=== PATIENT | female | born 1990 | race Caucasian/White ===

== ENCOUNTER 2018-09-12 08:53 | Emergency (ER) | payer MEDICAID, SELFPAY ==
[2018-09-12 08:57] VITALS: BP 122/85; PULSE 92; RESP 16; TEMP 36.7; O2SAT 99
--- NOTE | 2018-09-12 09:20 | W.ED.GENAD ---
Discharge Plan Disposition Patient Disposition: HOME Condition: Stable Discharge Details Chief Complaint: RespSymp Clinical Impression: Cough Primary Care Provider: Holli Leon ED Provider: Alex Hunt Home Meds and New Rx's Prescriptions: New doxycycline hyclate 100 mg tablet 100 mg PO BID Qty: 14 RF: 0 Continue norelgestromin-ethin.estradiol [Xulane] 1 EACH patch weekly 1 ea Transdermal weekly Qty: 9 RF: 3 Discharge Instructions Instructions: Acute Cough (ED) Additional Instructions: follow up with your primary care provider in a week if symptoms are not improving if you have significant hard time breathing or high fevers return to the emergency department for reevaluation Discharge Data Discharge Physician: Alex Hunt Medical Decision Making 28 yo with no chronic medical problems comes in with cough for over a week and had temperature of 99.9 yesterday per pt. Denies recent travel, chest pain or difficulty breathing. She has clear lungs on exam other than small amount of crackles in right lower lobe. Could be viral pneumonitis but given findings on exam and length of time with cough will treat as possible CAP. She has stable vitals and appears well systemically so doubt sepsis at this time. Advised f/u with pcp and return precautions given Differential Diagnosis bronchitis, pneumonits, cap, post nasal drip, uri HPI General Mode of arrival: ambulatory. Date/Time Provider Initiated Documentation: 09/12/18 09:16. Limitations to Documentation: no limitations. Information obtained by: patient. History of Present Illness 28 year old F presents to the emergency department with the chief complaint of cough, described as moderate, with intensity rated at 4. Patient started experiencing this week(s) (1) and it has been constant. No relieving factors improve symptom(s), No exacerbating factors reported . Patient did receive the following treatments prior to arrival, none Related Data Home Medications Medication Instructions Recorded Confirmed norelgestromin-ethin.estradiol 1 ea TRANSDERMAL weekly #9 patch 03/02/18 09/12/18 [Xulane] doxycycline hyclate 100 mg PO BID #14 tab 09/12/18 Previous Rx's Medication Instructions Recorded norelgestromin-ethin.estradiol 1 ea TRANSDERMAL weekly #9 patch 03/02/18 [Xulane] doxycycline hyclate 100 mg PO BID #14 tab 09/12/18 Allergies Allergy/AdvReac Type Severity Reaction Status Date / Time No Known Drug Allergies Allergy Unverified 09/12/18 09:16 General Stated Complaint: RespSymp LAITH: 4 Review of Systems Review of Systems All systems reviewed & are unremarkable except as noted in HPI and below Constitutional Denies chills, Denies fever(s) and Denies weakness ENT Denies change in voice Cardiovascular Denies chest pain and Denies dyspnea Respiratory Denies dyspnea Gastrointestinal Denies abdominal pain, Denies nausea and Denies vomiting Genitourinary Denies dysuria Musculoskeletal Denies joint swelling Integumentary/Breasts Denies rash Neurologic Denies weakness Psychiatric Denies depression PFSH Family History Other Heart disease Medical History Anxiety disorder Social History Smoking/Tobacco Use Status: Never Exam Const General: no acute distress Orientation: alert HENMT Head: normal to inspection Ears: external ears normal General nose exam: external nose normal Mouth: moist mucous membranes Eyes General: appearance normal, both eyes and all related structures Neck Neck: normal visual inspection Resp Effort & Inspection: normal respiratory effort and able to speak in complete sentences Cardio Rate: regular rate Skin General skin exam: no rashes or lesions noted Neuro General: alert and oriented x3 Extrem General: normal to inspection Psych Mental Status: mental status grossly normal Course Vital Signs Temperature 36.7 C 09/12/18 08:57 Pulse 92 H 09/12/18 08:57 Respiratory Rate 16 09/12/18 08:57 Blood Pressure 122/85 09/12/18 08:57 Pulse Oximetry 99 09/12/18 08:57 Temperature 36.7 C 09/12/18 08:57 Temperature Source Skin 09/12/18 08:57 Pulse 92 H 09/12/18 08:57 Respiratory Rate 16 09/12/18 08:57 Respiratory Effort Non-Labored 09/12/18 09:03 Respiratory Depth Normal 09/12/18 09:03 Blood Pressure 122/85 09/12/18 08:57 Pulse Oximetry 99 09/12/18 08:57 Pain Level 5 09/12/18 08:57
--- NOTE | 2018-09-12 09:23 | ED.GENADUL_ITS ---
Discharge Plan Disposition Patient Disposition: HOME Condition: Stable Discharge Details Chief Complaint: RespSymp Clinical Impression: Cough Primary Care Provider: Holli Leon ED Provider: Alex Hunt Home Meds and New Rx's Prescriptions: New doxycycline hyclate 100 mg tablet 100 mg PO BID Qty: 14 RF: 0 Continue norelgestromin-ethin.estradiol [Xulane] 1 EACH patch weekly 1 ea Transdermal weekly Qty: 9 RF: 3 Discharge Instructions Instructions: Acute Cough (ED) Additional Instructions: follow up with your primary care provider in a week if symptoms are not improving if you have significant hard time breathing or high fevers return to the emergency department for reevaluation Discharge Data Discharge Physician: Aelx Hunt Medical Decision Making 28 yo with no chronic medical problems comes in with cough for over a week and had temperature of 99.9 yesterday per pt. Denies recent travel, chest pain or difficulty breathing. She has clear lungs on exam other than small amount of crackles in right lower lobe. Could be viral pneumonitis but given findings on exam and length of time with cough will treat as possible CAP. She has stable vitals and appears well systemically so doubt sepsis at this time. Advised f/u with pcp and return precautions given Differential Diagnosis bronchitis, pneumonits, cap, post nasal drip, uri HPI General Mode of arrival: ambulatory . Date/Time Provider Initiated Documentation: 09/12/18 09:16 . Limitations to Documentation: no limitations . Information obtained by: patient . History of Present Illness 28 year old F presents to the emergency department with the chief complaint of cough, described as moderate, with intensity rated at 4. Patient started experiencing this week(s) (1) and it has been constant. No relieving factors improve symptom(s), No exacerbating factors reported . Patient did receive the following treatments prior to arrival, none Related Data Home Medications Medication Instructions Recorded Confirmed norelgestromin-ethin.estradiol 1 ea TRANSDERMAL weekly #9 patch 03/02/18 [Xulane] doxycycline hyclate 100 mg PO BID #14 tab 09/12/18 Previous Rx's Medication Instructions Recorded norelgestromin-ethin.estradiol 1 ea TRANSDERMAL weekly #9 patch 03/02/18 [Xulane] doxycycline hyclate 100 mg PO BID #14 tab 09/12/18 Allergies Allergy/AdvReac Type Severity Reaction Status Date / Time No Known Drug Allergies Allergy Unverified 09/12/18 09:16 General Stated Complaint: RespSymp LAITH: 4 Review of Systems Review of Systems All systems reviewed & are unremarkable except as noted in HPI and below Constitutional Denies chills, Denies fever(s) and Denies weakness ENT Denies change in voice Cardiovascular Denies chest pain and Denies dyspnea Respiratory Denies dyspnea Gastrointestinal Denies abdominal pain, Denies nausea and Denies vomiting Genitourinary Denies dysuria Musculoskeletal Denies joint swelling Integumentary/Breasts Denies rash Neurologic Denies weakness Psychiatric Denies depression PFSH Family History Other Heart disease Medical History Anxiety disorder Social History Smoking/Tobacco Use Status: Never Exam Const General: no acute distress Orientation: alert HENMT Head: normal to inspection Ears: external ears normal General nose exam: external nose normal Mouth: moist mucous membranes Eyes General: appearance normal, both eyes and all related structures Neck Neck: normal visual inspection Resp Effort & Inspection: normal respiratory effort and able to speak in complete sentences Cardio Rate: regular rate Skin General skin exam: no rashes or lesions noted Neuro General: alert and oriented x3 Extrem General: normal to inspection Psych Mental Status: mental status grossly normal Course Vital Signs Temperature 36.7 C 09/12/18 08:57 Pulse 92 H 09/12/18 08:57 Respiratory Rate 16 09/12/18 08:57 Blood Pressure 122/85 09/12/18 08:57 Pulse Oximetry 99 09/12/18 08:57 Temperature 36.7 C 09/12/18 08:57 Temperature Source Skin 09/12/18 08:57 Pulse 92 H 09/12/18 08:57 Respiratory Rate 16 09/12/18 08:57 Respiratory Effort Non-Labored 09/12/18 09:03 Respiratory Depth Normal 09/12/18 09:03 Blood Pressure 122/85 09/12/18 08:57 Pulse Oximetry 99 09/12/18 08:57 Pain Level 5 09/12/18 08:57
== END 2018-09-12 09:30 | disposition home or self-care (01) ==
PROVIDERS: Emergency Provider Emergency Medicine; PCP Nurse Practitioner
DX: R05 Cough (principal)
CPT/HCPCS: 99283

== ENCOUNTER 2019-03-04 16:19 | Outpatient (REF) | payer MEDICAID, SELFPAY ==
--- NOTE | 2019-03-04 15:30 | PAPFT_PTH ---
PATIENT: Berenice Gibson LOC: [facility] U#:[id number] AGE/SX: 29/F ROOM: RE03/04/[address]: JEFFERSON Jimenez : 1990 BED: DIS: 03/04/2019 SPEC #: [id number] RECD: 03/04/19 18:18 STATUS: [facility]UH RELeona #: [id number] ANASTASIA: 03/04/19 15:[address]: Suyapa Austin DEPT: [facility] Cytology RECD BY: Kavya Conner ENTERED: 03/04/19 18:19 SP TYPE: PAPFT JOHNNY DR: Holli Leon Tissues: 1 - CX/ENDOCX FOR PAP SMEARS Procedures: PAP THIN PREP/UVM Screening Comments: [id number]
[2019-03-08 15:16] LABS: Chlamydia Result Negative; GC Result Negative; Specimen Description CERVIX
== END 2019-03-04 16:39 ==
LOC: LBN 16:19
PROVIDERS: PCP Nurse Practitioner; Visit Provider Nurse Practitioner Family
DX: Z11.3 Encounter for screening for infections with a predominantly sexual mode of transmission (principal); Z12.4 Encounter for screening for malignant neoplasm of cervix
CPT/HCPCS: 87491; 87591; 88142

== ENCOUNTER 2019-08-01 04:41 | Emergency (ER) | payer BC, MEDICAID, SELFPAY ==
[2019-08-01 04:43] VITALS: BP 125/65; PULSE 80; RESP 17; TEMP 37.2; O2SAT 98
--- NOTE | 2019-08-01 04:47 | W.ED.GENAD ---
Discharge Plan Disposition Patient Disposition: HOME Condition: Stable Discharge Details Chief Complaint: Sorethroat Clinical Impression: Pharyngitis Primary Care Provider: Holli Leon ED Provider: Alex Hunt Home Meds and New Rx's Prescriptions: New amoxicillin 500 mg tablet 500 mg PO BID Qty: 20 RF: 0 Continued Xulane 150-35 mcg/24 hr patch weekly 1 patch Transdermal weekly Qty: 9 RF: 3 Discharge Instructions Instructions: Pharyngitis (ED) Medical Decision Making 29 yo female comes in with 2 days of sore throat and subjective fevers. She states it hurts to swallow. SHe arrives in no dsitress speaking in full sentences on exam withot stridor or drooling. She has erythema of posterior pharynx, midline uvula, no submandibular swelling, pain over the hyoid or restricted neck movements. Her exam is consistent with pharyngitis, will check for strep. NO findings to suggest rpa, oil tanker captain, epiglotitis, ludwigs strep is positive, will start amoxicilin and d/c, return precautions given Differential Diagnosis strep vs viral pharyngitis, rpa, oil tanker captain HPI General Mode of arrival: ambulatory. Date/Time Provider Initiated Documentation: 08/01/19 04:46. Limitations to Documentation: no limitations. Information obtained by: patient. History of Present Illness 29 year old F presents to the emergency department with the chief complaint of sore throat, described as moderate, Quality is described as aching, Patient reports no radiation. Patient started experiencing this day(s) (2) and it has been constant. No relieving factors improve symptom(s), No exacerbating factors reported . Patient did receive the following treatments prior to arrival, NSAID Related Data Home Medications Medication Instructions Recorded Confirmed norelgestromin 150 mcg-e.estradiol 1 patch TRANSDERMAL weekly #9 patch 03/04/19 08/01/19 35 mcg/24 hr weekly transderm patch amoxicillin 500 mg PO BID #20 tab 08/01/19 Previous Rx's Medication Instructions Recorded norelgestromin 150 mcg-e.estradiol 1 patch TRANSDERMAL weekly #9 patch 03/04/19 35 mcg/24 hr weekly transderm patch amoxicillin 500 mg PO BID #20 tab 08/01/19 Allergies Allergy/AdvReac Type Severity Reaction Status Date / Time No Known Drug Allergies Allergy Verified 08/01/19 04:47 General Stated Complaint: Sorethroat LAITH: 4 Review of Systems Review of Systems All systems reviewed & are unremarkable except as noted in HPI and below Constitutional Denies weakness Cardiovascular Denies chest pain and Denies dyspnea Respiratory Denies cough and Denies dyspnea Gastrointestinal Denies abdominal pain, Denies nausea and Denies vomiting Musculoskeletal Denies joint swelling Neurologic Denies weakness Psychiatric Denies depression Allergic/Immunologic Denies urticaria PFSH Medical History Anxiety disorder (Acute 03/10/13) Contraception (Acute 03/02/18) Social History Smoking/Tobacco Use Status: Never Alcohol Intake: current Alcohol Intake frequency: holidays/special occasions only Alcohol type: beer and wine Drug use: Never Substance use type: does not use Do you feel safe at home: Yes Do you feel safe in your relationship?: Yes Female Reproductive History Menstrual control method: patch History History 1 Para 1 Hx # Term Pregnancies Multiple births Hx # Pregnancies Ectopic pregnancies AB induced Hx Number of Living Children AB spontaneous Exam Const General: no acute distress Orientation: alert HENMT Head: normal to inspection Ears: external ears normal General nose exam: external nose normal Mouth: moist mucous membranes Eyes General: appearance normal, both eyes and all related structures Neck Neck: normal visual inspection Resp Effort & Inspection: normal respiratory effort and able to speak in complete sentences Cardio Rate: regular rate Skin General skin exam: no rashes or lesions noted Neuro General: alert and oriented x3 Extrem General: normal to inspection Psych Mental Status: mental status grossly normal Course Vital Signs Temperature 37.2 C 08/01/19 04:43 Pulse 80 08/01/19 04:43 Respiratory Rate 17 08/01/19 04:43 Blood Pressure 125/65 08/01/19 04:43 Pulse Oximetry 98 08/01/19 04:43 Temperature 37.2 C 08/01/19 04:43 Temperature Source Skin 08/01/19 04:43 Pulse 80 08/01/19 04:43 Respiratory Rate 17 08/01/19 04:43 Blood Pressure 125/65 08/01/19 04:43 Blood Pressure Position Sitting 08/01/19 04:43 Pulse Oximetry 98 08/01/19 04:43 Oxygen Delivery Method Room Air 08/01/19 04:43 Oxygen Flow Rate 0 08/01/19 04:43 Pain Level 7 08/01/19 04:43
[2019-08-01] MEDS: Amoxicillin 500 MG CAP PO (05:06)
== END 2019-08-01 05:10 | disposition home or self-care (01) ==
LOC: ER 05:06
PROVIDERS: Emergency Provider Emergency Medicine; PCP Nurse Practitioner
DX: J02.0 Streptococcal pharyngitis (principal)
CPT/HCPCS: 87880; 99283

== ENCOUNTER 2019-09-07 14:42 | Outpatient (CLI) | payer MEDICAID, SELFPAY ==
[2019-09-08 11:27] LABS: Hepatitis B Surface Ag Negative (NEGAT); Hepatitis C Ab w Rflx HCV PCR Negative (NEGAT)
[2019-09-08 14:03] LABS: HIV-1/2 Ag & Ab Screen Negative (NEGAT)
[2019-09-08 16:23] LABS: Syphilis Total Ab w/Reflex Nonreactive (Nonreactive)
== END 2019-09-07 15:02 ==
PROVIDERS: PCP Nurse Practitioner; Visit Provider Nurse Practitioner Women's Health
DX: Z11.3 Encounter for screening for infections with a predominantly sexual mode of transmission (principal); Z11.4 Encounter for screening for human immunodeficiency virus [HIV]; Z11.59 Encounter for screening for other viral diseases
CPT/HCPCS: 36415; 86803; 87340; 87389; 86780

== ENCOUNTER 2019-09-07 18:46 | Outpatient (REF) | payer MEDICAID, SELFPAY ==
[2019-09-09 14:33] LABS: Chlamydia Result Negative; GC Result Negative; Specimen Description URINE
== END 2019-09-07 19:06 ==
LOC: LBN 18:46
PROVIDERS: PCP Nurse Practitioner; Visit Provider Nurse Practitioner Women's Health
DX: Z11.3 Encounter for screening for infections with a predominantly sexual mode of transmission (principal)
CPT/HCPCS: 87491; 87591

== ENCOUNTER 2020-09-01 16:34 | Outpatient (REF) | payer MEDICAID, SELFPAY ==
--- NOTE | 2020-09-01 15:50 | PAPFT_PTH ---
PATIENT: Berenice Gibson LOC: [facility] U#:[id number] AGE/SX: 30/F ROOM: RE09/01/[address]: JEFFERSON Jimenez : 1990 BED: DIS: 09/01/2020 SPEC #: [id number] RECD: 09/01/20 17:29 STATUS: [facility] RELeona #: [id number] ANASTASIA: 09/01/20 15:[address]: Suyapa Austin DEPT: [facility] Cytology RECD BY: Fabiola Garcia ENTERED: 09/01/20 17:30 SP TYPE: PAPFT OTHR DR: Holli Leon Tissues: 1 - CX/ENDOCX FOR PAP SMEARS Procedures: PAP THIN PREP/UVM Screening HPV DNA PROBE Comments: [id number]
[2020-09-04 15:10] LABS: Chlamydia Result Negative (Negative); GC Result Negative (Negative)
== END 2020-09-01 16:54 ==
LOC: LBN 16:34
PROVIDERS: PCP Nurse Practitioner; Visit Provider Nurse Practitioner Family
DX: Z12.4 Encounter for screening for malignant neoplasm of cervix (principal); Z11.51 Encounter for screening for human papillomavirus (HPV)
CPT/HCPCS: 87491; 87591; 88142; 87624

== ENCOUNTER 2020-09-06 02:11 | Outpatient (CLI) | payer MEDICAID, SELFPAY ==
[2020-09-06 11:38] LABS: TSH (W/Ref FT4) 0.34 uIU/mL (0.36-3.74)
[2020-09-06 12:06] LABS: FREE T4 1.07 ng/dL (0.76-1.46)
[2020-09-07 09:22] LABS: Hepatitis B Surface Ag Negative (Negative)
[2020-09-07 10:10] LABS: Hepatitis C Ab w Rflx HCV PCR Negative (Negative)
[2020-09-07 10:22] LABS: HIV-1/2 Ag & Ab Screen Negative (Negative)
[2020-09-08 11:34] LABS: Syphilis Total Ab w/Reflex Nonreactive (Nonreactive)
== END 2020-09-06 02:31 ==
PROVIDERS: PCP Nurse Practitioner; Visit Provider Nurse Practitioner Family
DX: Z11.3 Encounter for screening for infections with a predominantly sexual mode of transmission (principal); N92.6 Irregular menstruation, unspecified
CPT/HCPCS: 36415; 86803; 87340; 87389; 84439; 84443; 86780

== ENCOUNTER 2021-09-17 18:03 | Outpatient (REF) | payer MEDICAID, SELFPAY ==
[2021-09-19 15:25] LABS: Chlamydia Result Negative (Negative); GC Result Negative (Negative)
== END 2021-09-17 18:04 | disposition home or self-care (01) ==
LOC: NCHCN 18:03
PROVIDERS: PCP Nurse Practitioner; Visit Provider Nurse Practitioner Family
DX: Z11.3 Encounter for screening for infections with a predominantly sexual mode of transmission (principal)
CPT/HCPCS: 87491; 87591

== ENCOUNTER 2021-09-19 04:37 | Outpatient (CLI) | payer MEDICAID, SELFPAY ==
[2021-09-20 10:04] LABS: Hepatitis B Surface Ag Negative (Negative)
[2021-09-20 10:37] LABS: Hepatitis C Ab w Rflx HCV PCR Negative (Negative)
[2021-09-20 10:56] LABS: HIV-1/2 Ag & Ab Screen Negative (Negative)
[2021-09-20 14:46] LABS: Syphilis Total Ab w/Reflex Nonreactive (Nonreactive)
== END 2021-09-19 04:38 | disposition home or self-care (01) ==
LOC: LBO 04:37
PROVIDERS: PCP Nurse Practitioner; Visit Provider Nurse Practitioner Family
DX: Z11.3 Encounter for screening for infections with a predominantly sexual mode of transmission (principal); Z11.4 Encounter for screening for human immunodeficiency virus [HIV]; Z11.59 Encounter for screening for other viral diseases
CPT/HCPCS: 36415; 86803; 87340; 87389; 86780

== ENCOUNTER 2022-08-26 12:35 | Outpatient (REF) | payer MEDICAID, SELFPAY | END 2022-08-26 12:36 | disposition home or self-care (01) | LOC: LBN 12:35 | PROVIDERS: PCP Nurse Practitioner; Visit Provider Advanced Practice Midwife | DX: N89.8 Other specified noninflammatory disorders of vagina (principal); R30.0 Dysuria | CPT/HCPCS: 87086; 87480; 87510; 87660 ==

== ENCOUNTER 2023-01-03 09:15 | Outpatient (REF) | payer MEDICAID, SELFPAY ==
--- NOTE | 2023-01-03 08:44 | PAPFT_PTH ---
PATIENT: Berenice Gibson LOC: [facility] U#:[id number] AGE/SX: 32/F ROOM: RE01/03/[address]: Maria Victoria Power MD : 1990 BED: DIS: 01/03/2023 SPEC #: [id number] RECD: 01/03/23 12:52 STATUS: [facility] REQ #: [id number] ANASTASIA: 01/03/23 08:[address]: Maria Victoria Power DEPT: [facility] Cytology RECD BY: Kavya Conner ENTERED: 01/03/23 12:52 SP TYPE: PAPFT JOHNNY DR: CHRISTIAN URBINA NP Tissues: 1 - CX/ENDOCX FOR PAP SMEARS Procedures: PAP THIN PREP/UVM Screening HPV DNA PROBE Comments: [id number]
== END 2023-01-03 09:16 | disposition home or self-care (01) ==
LOC: LBN 09:15
PROVIDERS: PCP Nurse Practitioner Family; Visit Provider Obstetrics & Gynecology
DX: Z12.4 Encounter for screening for malignant neoplasm of cervix (principal); Z11.51 Encounter for screening for human papillomavirus (HPV)
CPT/HCPCS: 88142; 87624

== ENCOUNTER 2023-08-07 16:25 | Outpatient (REF) | payer MEDICAID, SELFPAY ==
[2023-08-07 17:38] LABS: HCT 45.7 % (36.0-46.0); HGB 15.7 g/dL (11.2-15.7); MCHC 34.4 % (32.0-36.0); MCV 87 fL (80-95); MPV 11.4 fL (8.0-11.0); Platelet Count 253 10^3/uL (130-400); RBC 5.24 10^6/uL (3.93-5.22); RDW 11.7 % (11.7-14.6); RDW-SD 37.6 fL; WBC 7.64 10^3/uL (4.4-10.8)
[2023-08-07 18:08] LABS: Vitamin D 25 Total 62.5 ng/mL (30-100)
[2023-08-07 18:27] LABS: ALT 32 U/L (14-59); AST 16 U/L (15-37); Albumin 4.3 g/dL (3.4-5.0); Alkaline Phosphatase 73 U/L (46-116); Anion Gap 10.3 mmol/L (3-11); BUN 14 mg/dL (7-18); Bilirubin, Total 0.8 mg/dL (0.2-1.0); CO2 26.7 mmol/L (21.0-32.0); CREATININE 0.9 mg/dL (0.55-1.02); Calcium 9.1 mg/dL (8.5-10.1); Chloride 102 mmol/L (98-107); Estimated GFR 86.57 (mL/min/1.73m2); Glucose 102 mg/dL (74-106); Potassium 4.4 mmol/L (3.5-5.1); Sodium 139 mmol/L (136-145); TSH (W/Ref FT4) 0.44 uIU/mL (0.36-3.74); Total Protein 7.9 g/dL (6.4-8.2); Vitamin B12 575 pg/mL (193-986)
== END 2023-08-07 16:26 | disposition home or self-care (01) ==
LOC: NCHCN 16:25
PROVIDERS: PCP Nurse Practitioner Family; Visit Provider Nurse Practitioner Family
DX: F41.9 Anxiety disorder, unspecified (principal); R63.5 Abnormal weight gain; Z83.49 Family history of other endocrine, nutritional and metabolic diseases
CPT/HCPCS: 80053; 82306; 85027; 82607; 84443

== ENCOUNTER 2023-10-28 02:02 | Outpatient (CLI) | payer MEDICAID, SELFPAY ==
[2023-10-28 14:25] LABS: Panorama Kit Sent via Fed Ex
[2023-10-28 14:32] LABS: Abs Immature Grans 0.03 10^3/uL (0.0-0.06); Absolute Basophil Count 0.03 10^3/uL (0.0-0.2); Absolute Eosinophil Count 0.09 10^3/uL (0.0-0.7); Absolute Lymphocyte Count 2.45 10^3/uL (1.2-3.4); Absolute Monocyte Count 0.37 10^3/uL (0.1-0.8); Absolute Neutrophil Count 6.39 10^3/uL (1.2-6.7); Basophils % 0.3; HCT 39.6 % (36.0-46.0); HGB 13.8 g/dL (11.2-15.7); Immature Grans % 0.3; Lymphocytes % 26.2; MCH 30.3 pg (27.0-33.0); MCHC 34.8 % (32.0-36.0); MCV 87 fL (80-95); MPV 10.3 fL (8.0-11.0); Neutrophils % 68.2; Platelet Count 236 10^3/uL (130-400); RBC 4.56 10^6/uL (3.93-5.22); RDW 11.7 % (11.7-14.6); RDW-SD 37.3 fL; WBC 9.36 10^3/uL (4.4-10.8)
[2023-10-28 15:12] LABS: Glucose,1 Hr (Glucola) 169 mg/dL (80-140)
[2023-10-29 10:03] LABS: Hepatitis B Surface Ag Negative (Negative)
[2023-10-29 10:42] LABS: HIV-1/2 Ag & Ab Screen Negative (Negative)
[2023-10-29 10:48] LABS: Hepatitis C Ab w Rflx HCV PCR Negative (Negative)
[2023-10-29 11:04] LABS: Varicella IgG Antibody Positive (See Note)
[2023-10-29 11:21] LABS: Rubella IgG Ab (UVM) Positive (See Note)
[2023-10-30 19:03] LABS: Syphilis IgG w/Reflex Nonreactive (Nonreactive)
== END 2023-10-28 02:03 | disposition home or self-care (01) ==
LOC: LBO 02:02
PROVIDERS: PCP Nurse Practitioner Family; Visit Provider Advanced Practice Midwife
DX: Z34.91 Encounter for supervision of normal pregnancy, unspecified, first trimester (principal)
CPT/HCPCS: 36415; 82950; 86787; 86803; 86850; 86900; 86901; 87340; 87389; 85025; 86762; 86780

== ENCOUNTER 2023-10-28 15:49 | Outpatient (REF) | payer MEDICAID, SELFPAY ==
[2023-10-28 17:09] LABS: *AMPHETAMINES SCREEN URINE Negative (Negative); *BARBITURATES SCREEN URINE Negative (Negative); *BENZODIAZEPINES SCREEN URINE Negative (Negative); Cannabinoids THC Negative (Negative); Cocaine Screen,Urine Negative (Negative); METHADONE URINE SCREEN Negative (Negative); OPIATES URINE SCREEN Negative (Negative)
[2023-10-28 17:12] LABS: Tricyclic Antidepressants Negative (Negative)
[2023-10-30 16:51] LABS: Chlamydia Result Negative (Negative); GC Result Negative (Negative)
[2023-11-04 15:40] LABS: Buprenorphine Negative ng/mL (Cutoff: 5.0); Norbuprenorphine Negative ng/mL (Cutoff: 2.5)
== END 2023-10-28 15:50 | disposition home or self-care (01) ==
LOC: LBN 15:49
PROVIDERS: PCP Nurse Practitioner Family; Visit Provider Advanced Practice Midwife
DX: Z34.91 Encounter for supervision of normal pregnancy, unspecified, first trimester (principal)
CPT/HCPCS: 80307; 80348; 87491; 87591; 87086

== ENCOUNTER 2023-11-04 04:55 | Outpatient (CLI) | payer MEDICAID, SELFPAY ==
[2023-11-04 10:04] LABS: Glucose,1 Hr (Glucola) 179 mg/dL (80-140)
== END 2023-11-04 04:56 | disposition home or self-care (01) ==
LOC: LBO 04:55
PROVIDERS: PCP Nurse Practitioner Family; Visit Provider Advanced Practice Midwife
DX: Z34.92 Encounter for supervision of normal pregnancy, unspecified, second trimester (principal)
CPT/HCPCS: 36415; 82950

== ENCOUNTER 2023-11-12 04:08 | Outpatient (CLI) | payer MEDICAID, SELFPAY ==
[2023-11-12 08:54] LABS: Glucose 1 Hour 139 mg/dL
[2023-11-12 10:54] LABS: Glucose 3 Hour 93 mg/dL
== END 2023-11-12 04:09 | disposition home or self-care (01) ==
LOC: LBO 04:08
PROVIDERS: PCP Nurse Practitioner Family; Visit Provider Advanced Practice Midwife
DX: Z34.91 Encounter for supervision of normal pregnancy, unspecified, first trimester (principal); Z3A.11 11 weeks gestation of pregnancy
CPT/HCPCS: 36415; 82951

== ENCOUNTER 2023-11-26 17:23 | Outpatient (REF) | payer MEDICAID, SELFPAY ==
--- NOTE | 2023-11-26 17:00 | SKI_PTH ---
PATIENT: Berenice Gibson LOC: [facility] U#:[id number] AGE/SX: 33/F ROOM: RE11/26/[address]: CHRISTIAN URBINA NP : 1990 BED: DIS: 11/26/2023 SPEC #: [id number] RECD: 11/27/23 12:43 STATUS: [facility] #: [id number] ANASTASIA: 11/26/23 17:[address]: CHRISTIAN URBINA DEPT: Surgical Specimen RECD BY: Kavya Conner Tissues: 1 - SKIN BIOPSY(SHAVE/PUNCH) Procedures: SKIN LEVEL 4 Comments: [id number]
== END 2023-11-26 17:24 | disposition home or self-care (01) ==
LOC: NCHCN 17:23
PROVIDERS: PCP Nurse Practitioner Family; Visit Provider Nurse Practitioner Family
DX: L82.1 Other seborrheic keratosis (principal)
CPT/HCPCS: 88305

== ENCOUNTER 2023-12-02 21:26 | Outpatient (REF) | payer MEDICAID, SELFPAY ==
[2023-12-03 09:51] LABS: COVID-19 PCR Negative (Negative); Influenza A PCR Positive (Negative); Influenza B PCR Negative (Negative); RSV PCR Negative (Negative)
[2023-12-03 10:15] LABS: Source Nasopharynx
== END 2023-12-02 21:27 | disposition home or self-care (01) ==
LOC: LBN 21:26
PROVIDERS: PCP Nurse Practitioner Family; Visit Provider Nurse Practitioner Family
DX: B34.9 Viral infection, unspecified (principal)
CPT/HCPCS: 87637; 87070

== ENCOUNTER → 2023-12-22 02:56 | Outpatient (CLI) | payer MEDICAID, SELFPAY ==
--- NOTE | 2023-12-22 07:30 | DI.US_ITS ---
Exam(s) US OB 2-3 TRIMESTER EXAM: US OB 2-3 TRIMESTER CLINICAL HISTORY: anatomy/morphology,z34.91. TECHNIQUE: Transabdominal obstetrical ultrasound performed. COMPARISON: US OB US 1ST TRIMESTER TRANSABD*P from 01/07/2014 FINDINGS: Number of fetuses: 1 position: VARIED heart rate: 151bpm Placental location: There is a grade 1 anterior placenta. The placental tip is 4.5 cm from the inter nal os. No evidence of previa. Amniotic fluid index: Amount of fluid is within normal limits. ANATOMICAL SURVEY: Within normal limits. BIOMETRIC DATA: BPD: 4.75cm, 20weeks 3days HC: 17.63cm, 20weeks 1day AC: 15.6cm, 20weeks 5days FL: 3cm, 19weeks 2days Cisterna magna: 2.5mm Cerebellum: 1.92cm Lateral ventricle: 6.3 mm EFW: 331.46g, 0.76lb, 88% Composite Age: 20weeks 1day YAN: 05/09/2024 Heart Rate: 151bpm ANATOMICAL SURVEY: Four-chambered heart: Unremarkable. RVOT: Unremarkable. LVOT: Unremarkable. Left-sided stomach: Unremarkable. urinary bladder: Unremarkable. Bilateral kidneys: Unremarkable. Three-vessel cord: Unremarkable. Cord insertion: Unremarkable. Posterior fossa: Unremarkable. ventricles: Unremarkable. nose/lips: Unremarkable. Palate: Unremarkable. spine: Unremarkable. Two arms and two legs: Unremarkable. IMPRESSION: 1. Single live intrauterine gestation as above. 2. Normal anatomic survey. DATA REPOSITORY:
[2024-03-22 13:31] VITALS: BP 121/78; PULSE 72
== END ==
PROVIDERS: PCP Nurse Practitioner Family; Visit Provider Advanced Practice Midwife
DX: Z34.91 Encounter for supervision of normal pregnancy, unspecified, first trimester (principal)
CPT/HCPCS: 76805

== ENCOUNTER 2024-02-25 05:02 | Outpatient (CLI) | payer MEDICAID, SELFPAY ==
[2024-02-25 07:56] LABS: HCT 36.8 % (36.0-46.0); MCH 28.9 pg (27.0-33.0); MCHC 32.6 % (32.0-36.0); MCV 89 fL (80-95); MPV 10.7 fL (8.0-11.0); Platelet Count 163 10^3/uL (130-400); RBC 4.15 10^6/uL (3.93-5.22); RDW 12.5 % (11.7-14.6); RDW-SD 40.7 fL; WBC 9.93 10^3/uL (4.4-10.8)
[2024-02-25 08:14] LABS: ALT 25 U/L (14-59); AST 21 U/L (15-37); Albumin 2.6 g/dL (3.4-5.0); Alkaline Phosphatase 77 U/L (46-116); Anion Gap 7.9 mmol/L (3-11); BUN 15 mg/dL (7-18); Bilirubin, Total 0.3 mg/dL (0.2-1.0); CO2 27.1 mmol/L (21.0-32.0); CREATININE 0.7 mg/dL (0.55-1.02); Calcium 8.5 mg/dL (8.5-10.1); Chloride 103 mmol/L (98-107); Estimated GFR 116.31 (mL/min/1.73m2); Glucose 83 mg/dL (74-106); Sodium 138 mmol/L (136-145); Total Protein 6.9 g/dL (6.4-8.2)
[2024-02-25 09:54] LABS: Glucose 1 Hour 153 mg/dL
[2024-02-25 12:01] LABS: Glucose 3 Hour 126 mg/dL
== END 2024-02-25 05:03 | disposition home or self-care (01) ==
LOC: LBO 05:02
PROVIDERS: Advanced Practice Midwife; PCP Nurse Practitioner Family; Visit Provider Advanced Practice Midwife
DX: I10 Essential (primary) hypertension (principal); Z34.92 Encounter for supervision of normal pregnancy, unspecified, second trimester; R73.09 Other abnormal glucose
CPT/HCPCS: 36415; 80053; 85027; 82951

== ENCOUNTER 2024-03-22 13:12 | Outpatient (CLI) | payer MEDICAID, SELFPAY ==
[2024-03-22 13:27] VITALS: BP 121/78; PULSE 72; TEMP 36.8
[2024-03-22 14:35] LABS: Fetal Fibronectin Negative (Negative)
--- NOTE | 2024-03-22 16:23 | W.OBNST ---
Date of service: 03/22/24 Time of Service: 16:23 NST Evaluation Reason for NST Reasons for Nonstress Test: OTHER, SEE COMMENT Reason for NST Other: rule out pre-term labor Gestational Age Gestational Age in Weeks and Days: 32 Weeks and 2Days Test and Monitor Explained Test/Monitor Explained: Test Explained Vital Signs Blood Pressure: 121/78 Pulse: 72 Temperature: 98.2 F Urine Results Urine Protein: Negative Urine Ketones: Negative Urine Glucose: Negative Urine Blood: Negative NST Information Date on Monitor: 03/22/24 Time on Monitor: 13:16 Date off Monitor: 03/22/24 Time off Monitor: 15:45 Total Time on Monitor: 149 NST Interventions: None Contraction Frequency: 4-6 NST Evaluation Patient States Movement: Present FHR Baseline: 140 Variability: Moderate 6-25 bpm Accelerations: 15x15 Decelerations: None NST Results: Reactive Note Ultrasound Done: N/A. NST Note Note: fFN is positive, VPS & US are negative, GBS and GC/CT pending Cvx very posterior and high, soft/thick, internal os admits a fingertip, no presenting part in the pelvis (cephalic), Discussion with Dr. Power, will advise pt on warning sx, decrease activity when at home, rest AMAP and hydrate well As cvx is not favorable will hold off on steroids or starting maternity leave at this time RTO for weekly visits, starting 03/26. NST Reviewed and Verified by: Sandra Vazquez
[2024-03-22 16:29] VITALS: BP 121/78; PULSE 72; TEMP 36.8
[2024-03-24 13:09] LABS: Chlamydia Result Negative (Negative); GC Result Negative (Negative)
== END 2024-03-22 16:07 | disposition home or self-care (01) ==
LOC: BCD 13:18 → OBS 13:26
PROVIDERS: PCP Nurse Practitioner Family; Visit Provider Advanced Practice Midwife
DX: O47.03 False labor before 37 completed weeks of gestation, third trimester (principal); Z3A.32 32 weeks gestation of pregnancy
CPT/HCPCS: 59025; 87491; 87591; 82731; 87081; 87480; 87510; 87660

== ENCOUNTER 2024-03-24 10:09 | Observation (INO) | payer MEDICAID, SELFPAY ==
[2024-03-24 08:49] VITALS: BP 130/82; PULSE 77
[2024-03-24 09:08] VITALS: BP 130/82; PULSE 77; TEMP 36.8
--- NOTE | 2024-03-24 10:11 | W.PM.OBHPL1 ---
Date of service: 03/24/24 Time of Service: 10:11 Assessment and Plan Assessment and plan (1) labor in third trimester: Status: Acute Assessment and plan: A: 34 yo @ 32+4 wks; on 03/22 fFN was neg, BV, amarilys and trich negative PTL sx x2 days, cvx change from previous exam 2 days ago On 03/22 cvx was FT/thick, posterior/high, now 3/60% mid pelvis, vtx -3/-4 category 1 tracing; GBS & CT/GC pending, Rh+ P: Consult with Dr. Power: [place] [facility] [place]ifedipine 10 mg PO Celestone 12 mg IM IV access with LR @ 150 ml/hr Dr. Clements [place] [facility] [place] Qualifiers: Fetus number: single or unspecified fetus OB-HPI Labor/Delivery History of Present Illness Reason for Visit: NST Chief Complaint: Uterine Contractions (cramping and contractions for several days); Other (small brown colored thick mucous on postvoid wipe this morning). YAN Calculator Estimated Delivery Date Method Current WG Current Estimate 05/15/24 LMP (Certain) 32w 4d History of Present Expected Delivery Route/Plan - CNM FOB/ - Kingsley Kitchen (first child) BB yes to cathy Mitchell Interested in laboring in the tub Specific Issues/Plan 1. OCD, works with PCP and feels it is in a good place now 2. Previous CF neg, cfDNA- WNL, declines SMA 3. BMI 30-Early [id number]; pt states she ate a rice krispie square after drinking glucola, repeat 1 hr glucola -179 3a. 3-hr GTT normal F90/1h 139/2h 131/3h 93, 3b. 3 hr GTT @ 28 wks F83/1h153/2h119/3h126 4. Stage 1 hypertension, CMP order added for 28 wks / Normal Assessment: History Reviewed & Current Informed Consent Informed Consent: Other (consents [place] [facility] [place] Review of Systems Narrative: ROS completed and noncontributory PFSH All Active Problems (Updated 03/24/24 @ 10:43 by Sandra Vazquez) labor in third trimester (Acute) Stage 1 hypertension (Acute) BMI 30.0-30.9,adult (Acute) (Acute) Anxiety disorder (Acute 03/10/13) Medical History (Updated 03/24/24 @ 10:43 by Sandra Vazquez) Patient desires Elevated glucose level Missed menses Torticollis Tinea corporis Benign lipomatous tumor Cough Acute pharyngitis Verruca vulgaris OCD (obsessive compulsive disorder) Family history of endocrine disorder Abnormal weight gain Chronic rhinitis Family History Mother Heart disease [place] Sister Thyroid disorder Sister No problems noted. Social History Smoking/Tobacco Use Status: Never Smoking risk assessment performed?: Yes Alcohol Intake: current Alcohol Intake frequency: holidays/special occasions only Alcohol type: beer and wine Drug use: Never Substance use type: does not use Current gender identity: female Do you feel safe at home: Yes Do you feel safe in your relationship?: Yes Female Reproductive History Menstrual Age of Menarche: 12 Duration of menses: 3-5 days control method: none History History 2 Para 1 Hx # Term Pregnancies 1 Multiple births 0 Hx # Pregnancies 0 Ectopic pregnancies 0 AB induced 0 Hx Number of Living Children 1 AB spontaneous 0 Past Pregnancies Del. Date GA/Weeks # Preg Succ Route Wgt Sex Labor Lgth Anesthesia Location Prov Complic 06/13/14 37 No Yes vaginal 5 lb 12 oz Male 17 regional [facility] ([place]) Delivery Date: 06/13/14 Last Updated by: Sandra Vazquez PROM w/spont labor, had intrathecal, nml [place] Meds Allergies and Home Medications Allergies Allergy/AdvReac Type Severity Reaction Status Date / Time No Known Drug Allergies Allergy Other (See Verified 03/22/24 12:40 Comment) Home Medications Medication Instructions Recorded Confirmed Type escitalopram oxalate 10 mg tablet 10 mg PO DAILY 09/10/23 03/18/24 History (Lexapro) vitamins no.170-iron 1 tab PO DAILY #90 tabs 09/10/23 03/18/24 Rx fumarate 27 mg-folic acid 1 mg tablet Exam Physical Exam Vital signs: Pulse BP 77 130/82 03/24/24 08:49 03/24/24 08:49 Vital Signs Reviewed: Yes Constitutional Constitutional: mild distress, average body habitus and cooperative Detailed Labor and Delivery Exam Dilation: 3 Effacement (%): 60 station: -3 Position: LOP (cephalic presentation confirmed with bedside transabdominal ultrasound) Cervix position: mid Consistency: soft CARMONA Score(Cervical Ripeness Score): 7 Amniotic Membrane Status: Intact Contraction Frequency(min): irregular1-2 in 10 minutes Contraction Intensity: Mild Fetus A Heart Rate Baseline: 140 Monitor Accelerations: Present Monitor Decelerations: None Variability: Moderate (6-25 BPM) Presentation: Cephalic Categories: Category I HEENT Exam HEENT Exam: Normal Neck Exam Neck Exam: Normal Chest/Brest/Axilla Exam Chest Exam: Normal Breast Exam Breast Exam: Not Done Respiratory Exam Respiratory Exam: Normal Cardiovascular Exam Cardiovascular Exam: Normal Abdominal Exam Abdominal Exam: Normal (gravid, soft, nontender, S=D) Rectal Exam Rectal Exam: Normal Exam Exam: Normal Extremities Exam Extremities Exam: Normal Back/Spine/Pelvis Exam Back Exam: Normal Pelvis Adequate: Yes Skin Exam Skin Exam: Normal Neurological Exam Neurological Exam: Normal Psychiatric Exam Psychiatric Exam: Normal Risk Assessment Risk for Shoulder Dystocia Historical/Initial OB: POSITIVE FOR: Pre- BMI>30; NEGATIVE FOR: Pelvic Abnormality, Previous Shoulder Dystocia or Previous Macrosomia Date/Initial: 10/28/23 Risk for Pre-Eclampsia Date Initiated/Initials: 10/28/23 Yes, if one or more: NEGATIVE FOR: Hx Pre-E/Gest HTN, Chronic HTN, Multiple Gestation, Pre-gestational DM, Renal Disease, Systemic Lupus or APA Syndrome Yes, if 2 or more: POSITIVE FOR: BMI>30; NEGATIVE FOR: Nulliparity, Age>= 35 yrs, >10yr btwn pregnancies, ethinicty, Mother/Sister w/ Pre-E or Previous IUGR Risk for Post- Hemorrhage Initial: NEGATIVE FOR: Multiple Gestation, Previous PPH, Known Clotting Deficiency, Grand Multiparity or Anticoagulation Counseled re: Active Management: Yes Date/Initials: 10/28/23 Risks Reviewed Risks Reviewed Upon Admission: Yes
[2024-03-24] MEDS: NIFEdipine 10 MG CAP PO (10:21)
[2024-03-24] MEDS: Normal Saline Flush 10 ML SYR IVP (10:21)
[2024-03-24] MEDS: Betamet Acet/Betamet Na Ph Inj. 30 MG/5 ML 12 MG IM (10:35)
[2024-03-24 10:39] VITALS: BP 114/75; PULSE 78
[2024-03-24] MEDS: Lactated Ringers 1,000 ML 150 ML IV (10:39)
[2024-03-24 11:17] VITALS: BP 121/71; PULSE 80
--- NOTE | 2024-03-24 11:20 | W.PM.OBDISCH ---
Date of service: 03/24/24 Time of Service: 11:20 DS: Diagnosis Discharge Diagnosis (1) labor in third trimester: Status: Acute Discharge Plan Disposition Specific Acute Inpt Facility: [facility] Condition: Fair Discharge Details Reason For Visit: NST Attending Provider: Sandra Vazquez Primary Care Provider: CHRISTIAN URBINA Hospital Course Hospital Course: labor sx with palpable cvx change from exam done 2 days ago, category 1 heart tracing Home Meds and New Rx's Prescriptions: No Action escitalopram oxalate [Lexapro] 10 mg tablet 10 mg PO DAILY PNV no.170-iron fum-folic acid 27 mg iron- 1 mg tablet 1 tab PO DAILY Qty: 90 3RF Discharge Instructions Equipment/Supplies:: No Equipment Needed Diet:: Normal Diet Discharge Orders Discharge Orders: Discharge Order (Routine); Ordered 03/24/24 Ordered By: Sandra Vazquez OB:DS Summary Contraception Discussed Contraception Discussed: No, Status at Discharge Functional status at discharge: independent ambulation (but on bedrest) Overall status at discharge: patient is not back to baseline Mental Status: mental status grossly normal Speech and Movement: speech and movement normal and speech clear Mood: congruent mood and anxious mood Affect: normal affect Quality:SDOH Health Related Social Needs: No Data to Display Exam Physical Exam Vital signs: Pulse BP 80 121/71 03/24/24 11:17 03/24/24 11:17 Constitutional Constitutional: mild distress, average body habitus and cooperative HEENT Exam HEENT Exam: Normal Neck Exam Neck Exam: Normal Respiratory Exam Respiratory Exam: Normal Cardiovascular Exam Cardiovascular Exam: Normal Rectal Exam Rectal Exam: Normal Back/Spine/Pelvis Exam Back Exam: Normal Skin Exam Skin Exam: Normal Neurological Exam Neurological Exam: Normal Psychiatric Exam Psychiatric Exam: Normal PFSH All Active Problems (Updated 03/24/24 @ 10:43 by Sandra Vazquez) labor in third trimester (Acute) Stage 1 hypertension (Acute) BMI 30.0-30.9,adult (Acute) (Acute) Anxiety disorder (Acute 03/10/13) Medical History (Updated 03/24/24 @ 10:43 by Sandra Vazquez) Patient desires Elevated glucose level Missed menses Torticollis Tinea corporis Benign lipomatous tumor Cough Acute pharyngitis Verruca vulgaris OCD (obsessive compulsive disorder) Family history of endocrine disorder Abnormal weight gain Chronic rhinitis Family History Mother Heart disease [place] Sister Thyroid disorder Sister No problems noted. Social History Smoking/Tobacco Use Status: Never Smoking risk assessment performed?: Yes Alcohol Intake: current Alcohol Intake frequency: holidays/special occasions only Alcohol type: beer and wine Drug use: Never Substance use type: does not use Current gender identity: female Do you feel safe at home: Yes Do you feel safe in your relationship?: Yes Female Reproductive History Menstrual Age of Menarche: 12 Duration of menses: 3-5 days control method: none History History 2 Para 1 Hx # Term Pregnancies 1 Multiple births 0 Hx # Pregnancies 0 Ectopic pregnancies 0 AB induced 0 Hx Number of Living Children 1 AB spontaneous 0 Past Pregnancies Del. Date GA/Weeks # Preg Succ Route Wgt Sex Labor Lgth Anesthesia Location Prov Complic 06/13/14 37 No Yes vaginal 5 lb 12 oz Male 17 regional [facility] ([place]) Delivery Date: 06/13/14 Last Updated by: Sandra Vazquez PROM w/spont labor, had intrathecal, nml Isreal DS: Data Vitals/I&O Vitals and I&O: Vital Signs Temperature 98.2 F 03/24/24 09:08 Pulse 80 03/24/24 11:17 Pulse 77 03/24/24 09:08 Pulse Rhythm Regular 03/24/24 10:00 Blood Pressure 121/71 03/24/24 11:17 Blood Pressure 130/82 03/24/24 09:08 Oxygen Delivery Method Room Air 03/24/24 10:00 Oxygen Flow Rate 0 03/24/24 10:00 Intake & Output 03/23/24 03/23/24 03/24/24 11:59 23:59 11:59 Weight 206 lb 8 oz Other: Urine Color Yellow
== END 2024-03-24 11:43 | disposition short-term general hospital (02) ==
PROVIDERS: Admitting Provider Advanced Practice Midwife; PCP Nurse Practitioner Family; Visit Provider Advanced Practice Midwife
DX: O60.03 Preterm labor without delivery, third trimester (principal); Z3A.32 32 weeks gestation of pregnancy; O16.3 Unspecified maternal hypertension, third trimester; F42.9 Obsessive-compulsive disorder, unspecified; O99.343 Other mental disorders complicating pregnancy, third trimester
CPT/HCPCS: 59025; G0378; J0702

== ENCOUNTER 2024-08-18 16:16 | Outpatient (REF) | payer MEDICAID, SELFPAY ==
[2024-08-18 19:50] LABS: HCT 45.4 % (36.0-46.0); HGB 14.9 g/dL (11.2-15.7); MCH 28.8 pg (27.0-33.0); MCHC 32.8 % (32.0-36.0); MCV 88 fL (80-95); Platelet Count 231 10^3/uL (130-400); RBC 5.17 10^6/uL (3.93-5.22); RDW 12.7 % (11.7-14.6); RDW-SD 41.3 fL; WBC 6.42 10^3/uL (4.4-10.8)
[2024-08-18 20:01] LABS: Hemoglobin A1C 5.4 % (<5.7)
[2024-08-18 20:53] LABS: ALT 27 U/L (14-59); AST 15 U/L (15-37); Albumin 4.1 g/dL (3.4-5.0); Alkaline Phosphatase 90 U/L (46-116); Anion Gap 10.6 mmol/L (3-11); BUN 18 mg/dL (7-18); Bilirubin, Total 0.41 mg/dL (0.2-1.0); CO2 24.4 mmol/L (21.0-32.0); CREATININE 0.9 mg/dL (0.55-1.02); Calcium 9.8 mg/dL (8.5-10.1); Calculated LDL 109 mg/dL (<100); Chloride 103 mmol/L (98-107); Cholesterol 189 mg/dL (<200); Estimated GFR 86.03 (mL/min/1.73m2); Glucose 113 mg/dL (74-106); HDL Cholesterol 66 mg/dL (40-60); Potassium 4.1 mmol/L (3.5-5.1); Sodium 138 mmol/L (136-145); TSH (W/Ref FT4) 0.27 uIU/mL (0.36-3.74); Triglyceride 73 mg/dL (<150)
[2024-08-18 21:09] LABS: FREE T4 0.94 ng/dL (0.76-1.46)
== END 2024-08-18 16:17 | disposition home or self-care (01) ==
LOC: NCHCN 16:16
PROVIDERS: PCP Nurse Practitioner Family; Visit Provider Nurse Practitioner Family
DX: Z68.36 Body mass index [BMI] 36.0-36.9, adult (principal); F41.9 Anxiety disorder, unspecified; E66.9 Obesity, unspecified
CPT/HCPCS: 80053; 80061; 85027; 83036; 84439; 84443

== ENCOUNTER 2024-09-20 20:20 | Emergency (ER) | payer MEDICAID, SELFPAY ==
[2024-09-20 20:22] VITALS: BP 151/95; PULSE 113; RESP 16; TEMP 36.6; O2SAT 100
[2024-09-20 20:35] VITALS: BP 151/95; PULSE 113; RESP 16; TEMP 36.6; O2SAT 100
[2024-09-20 20:38] LABS: Bilirubin Negative (Negative); Blood Large (Negative); Clarity Cloudy (Clear); Glucose Negative (Negative); Ketones Negative (Negative); Leukocyte Esterase Small (Negative); Nitrite Positive (Negative); Specific Gravity 1.025 (1.005-1.025); Urobilinogen 0.2 mg/dL (Up to 0.2)
[2024-09-20 20:47] LABS: C & S Indicated? Yes; RBC >50 HPF (0-2)
[2024-09-20] MEDS: Cephalexin 500 MG CAP, 4 CAPS/BTL PO (21:19)
[2024-09-20 21:20] VITALS: PULSE 100; RESP 16; O2SAT 100
--- NOTE | 2024-09-20 22:24 | ED.GENADUL_ITS ---
Discharge Plan Disposition Patient Disposition: Home Discharge Details Clinical Impression: UTI (urinary tract infection) Primary Care Provider: CHRISTIAN URBINA ED Provider: Kavya Greene Home Meds and New Rx's Prescriptions: New cephalexin 500 mg capsule 500 mg PO Q12H 4 Days Qty: 8 0RF Continued escitalopram oxalate [Lexapro] 10 mg tablet 10 mg PO DAILY PNV no.170-iron fum-folic acid 27 mg iron- 1 mg tablet 1 tab PO DAILY Qty: 90 3RF Discharge Instructions Instructions: Urinary Tract Infection, Adult ED Additional Instructions: Take antibiotic as prescribed, yogurt daily while on antibiotics Have your urine rechecked in 10 days to be sure the blood has resolved Please return should you develop fever, chills, or with any new or worsening symptoms Referrals: CHRISTIAN URBINA, [employer] [Primary Care Provider] - 5 days HPI General Date/Time Provider Initiated Documentation: 09/20/24 20:48 . HPI Narrative: This 34-year-old female presents with reports of urinary symptoms dysuria, frequency in the past 2 days. She states her symptoms started after having intercourse with her . She has a 6-month-old at home and so has had very infrequent intercourse she may have acquired some irritation during intercourse does have some suprapubic tenderness she is also having frequency and burning. She states she has had some blood in her urine. She has not had return of menses yet. She is currently breast-feeding. She has a history of UTIs but has not had one for a while states she thinks it feels similarly. Denies any flank pain or history of kidney stones. Denies any chance of . Related Data Home Medications ?Medication ?Instructions ?Recorded ?Confirmed escitalopram oxalate 10 mg tablet 10 mg PO DAILY 09/10/23 09/20/24 (Lexapro) vitamins no.170-iron 1 tab PO DAILY #90 tabs 09/10/23 09/20/24 fumarate 27 mg-folic acid 1 mg tablet cephalexin 500 mg capsule 500 mg PO Q12H 4 days #8 caps 09/20/24 Previous Rx's ?Medication ?Instructions ?Recorded vitamins no.170-iron 1 tab PO DAILY #90 tabs 09/10/23 fumarate 27 mg-folic acid 1 mg tablet cephalexin 500 mg capsule 500 mg PO Q12H 4 days #8 caps 09/20/24 Allergies Allergy/AdvReac Type Severity Reaction Status Date / Time No Known Drug Allergies Allergy Other (See Verified 09/20/24 20:26 Comment) General Stated Complaint: Urinary LAITH: 3 Exam Narrative Exam Narrative: 34-year-old female, alert and oriented, no acute distress, no CVA tenderness, pelvic exam was performed secondary to irritation with recent intercourse, speculum exam within normal limits, no significant vaginal discharge or discomfort, no lacerations noted on assessment, nontender abdominal exam, Course Vital Signs Vital signs: Vital Signs Temperature 36.6 C 09/20/24 20:22 Pulse 113 H 09/20/24 20:22 Respiratory Rate 16 09/20/24 20:22 Blood Pressure 151/95 H 09/20/24 20:22 Pulse Oximetry 100 09/20/24 20:22 Temperature 36.6 C 09/20/24 20:35 Pulse 100 H 09/20/24 21:20 Respiratory Rate 16 09/20/24 21:20 Respiratory Effort Normal, Non-Labored 09/20/24 20:27 Blood Pressure 151/95 H 09/20/24 20:35 Blood Pressure Position Sitting 09/20/24 20:35 Pulse Oximetry 100 09/20/24 21:20 Oxygen Delivery Method Room Air 09/20/24 21:20 Oxygen Flow Rate 0 09/20/24 21:20 Pain Level 10 09/20/24 20:35 Lab/Test Results Lab/Test Results: 09/20/24 21:20 Vaginal Vaginitis Screen - Pending 09/20/24 20:25 Urine - Reflex from Ua Urine Culture - Pending Laboratory Tests Range/Units 09/20/24 20:25 Urine Color (Yellow) Yellow Urine Clarity (Clear) Cloudy Urine pH (5-8) 6.0 Ur Specific [place] (1.005-1.025) 1.025 Urine Protein (Neg-Trace) mg/dL >=300 H Urine Ketones (Negative) mg/dL Negative Urine Blood (Negative) Large H Urine Nitrite (Negative) Positive H Urine Bilirubin (Negative) Negative Urine Urobilinogen (Up to 0.2) mg/dL 0.2 Ur Leukocyte Esterase (Negative) Small H Urine RBC (0-2) HPF >50 H Urine WBC (0-5) HPF Ur Epithelial Cells Not Applicable Urine Crystals Not Applicable Urine Bacteria Not Applicable Urine Mucus Not Applicable Ur Culture Indicated? Yes Urine Glucose (Negative) mg/dL Negative POC- Test(urine) Negative Medical Decision Making 34-year-old female presenting with dysuria and some pelvic discomfort. Pelvic exam was performed without acute abnormality. Negative urine test, a urinalysis concerning for infection. Will treat with Keflex which is safe for breast-feeding. Patient will need recheck of her urine in 2 weeks to be sure that the blood has resolved. I suspect there is hematuria from the cystitis. No flank pain or obvious indication for kidney stone at this time although given the threshold to return with new or worsening complaints. Afebrile and nontoxic at time of discharge home repeat pulse of 100 will need blood pressure rechecked by primary care physician. Quality:SDOH Health Related Social Needs: No Data to Display PFSH All Active Problems (Updated 09/20/24 @ 21:16 by AMERICA Adams) UTI (urinary tract infection) (Acute) labor in third trimester (Acute) Stage 1 hypertension (Acute) BMI 30.0-30.9,adult (Acute) (Acute) Anxiety disorder (Acute 03/10/13) Medical History Patient desires Elevated glucose level Missed menses Torticollis Tinea corporis Benign lipomatous tumor Cough Acute pharyngitis Verruca vulgaris OCD (obsessive compulsive disorder) Family history of endocrine disorder Abnormal weight gain Chronic rhinitis Family History Mother Heart disease [place] Sister Thyroid disorder Sister No problems noted. Social History Smoking/Tobacco Use Status: Never Smoking risk assessment performed?: Yes Alcohol Intake: current Alcohol Intake frequency: holidays/special occasions only Alcohol type: beer and wine Drug use: Never Substance use type: does not use Current gender identity: female Do you feel safe at home: Yes Do you feel safe in your relationship?: Yes Female Reproductive History Menstrual Age of Menarche: 12 Duration of menses: 3-5 days control method: none History History 2 Para 2 Hx # Term Pregnancies 1 Multiple births 0 Hx # Pregnancies 1 Ectopic pregnancies 0 AB induced 0 Hx Number of Living Children 2 AB spontaneous 0 Past Pregnancies Del. Date GA/Weeks # Preg Succ Route Wgt Sex Labor Lgth Anesth esia Location Prov Complic 06/13/14 37 No Yes vaginal 2608.156 g Male 17 regional N [facility] 03/26/24 33 No Yes vaginal 2837.787 g Male regional D [facility] other Delivery Date: 06/13/14 Last Updated by: Sandra Vazquez PROM w/spont labor, had intrathecal, nml Isreal Delivery Date: 03/26/24 Last Updated by: Pretty Quintanilla LPN labor and delivery; bilateral hung-urethral lacerations
[2024-09-23 14:34] LABS: Chlamydia Result Invalid (Negative); GC Result Invalid (Negative)
== END 2024-09-20 21:35 | disposition home or self-care (01) ==
PROVIDERS: Emergency Provider Physician Assistant; PCP Nurse Practitioner Family
DX: N39.0 Urinary tract infection, site not specified (principal)
CPT/HCPCS: 81025; 87077; 87491; 87591; 99283; 81003; 81015; 87086; 87186; 87480; 87510; 87660

== ENCOUNTER 2024-10-08 10:52 | Outpatient (CLI) | payer MEDICAID, SELFPAY ==
--- NOTE | 2024-10-08 10:27 | DI.RAD_ITS ---
Exam(s) XR CHEST 2V PA LATERAL EXAM: XR CHEST 2V PA LATERAL CLINICAL HISTORY: Cough, R05.9 TECHNIQUE: 2D digital imaging was performed. Two views. COMPARISON: No exams were available for comparison FINDINGS: HEART: Normal size. Aorta: Not dilated. PULMONARY VASCULATURE: Normal. MEDIASTINUM: Unremarkable. LUNGS: Clear. PLEURAL SPACE: No pleural effusion or pneumothorax. BONE:Unremarkable for age. SOFT TISSUES: Unremarkable. IMPRESSION: No acute abnormality. DATA REPOSITORY: RADIATION DOSE DELIVERED:
== END 2024-10-08 11:12 ==
LOC: DI 10:53
PROVIDERS: PCP Nurse Practitioner Family; Visit Provider Physician Assistant Medical
DX: R05.9 Cough, unspecified (principal)
CPT/HCPCS: 71046

== ENCOUNTER 2024-10-08 15:12 | Outpatient (REF) | payer MEDICAID, SELFPAY | END 2024-10-08 15:13 | disposition home or self-care (01) | LOC: LBN 15:12 | PROVIDERS: PCP Nurse Practitioner Family; Visit Provider Physician Assistant Medical | DX: J02.9 Acute pharyngitis, unspecified (principal) | CPT/HCPCS: 87077; 87070 ==

== ENCOUNTER 2025-06-24 02:24 | Outpatient (CLI) | payer MEDICAID, SELFPAY ==
[2025-06-24 12:06] LABS: Abs Immature Grans 0.03 10^3/uL (0.0-0.06); HCT 39.7 % (36.0-46.0); HGB 13.4 g/dL (11.2-15.7); Immature Grans % 0.3 %; MCH 29.3 pg (27.0-33.0); MCHC 33.8 % (32.0-36.0); MCV 87 fL (80-95); MPV 10.2 fL (8.0-11.0); Platelet Count 248 10^3/uL (130-400); RBC 4.58 10^6/uL (3.93-5.22); RDW 12.5 % (11.7-14.6); RDW-SD 39.6 fL; WBC 9.18 10^3/uL (4.4-10.8)
[2025-06-24 12:26] LABS: Hemoglobin A1C 5.4 % (<5.7)
[2025-06-24 13:10] LABS: ALT 21 U/L (14-59); AST 15 U/L (15-37); Albumin 3.3 g/dL (3.4-5.0); Alkaline Phosphatase 85 U/L (46-116); Anion Gap 8.8 mmol/L (3-11); BUN 13 mg/dL (7-18); Bilirubin, Total 0.3 mg/dL (0.2-1.0); CO2 29.2 mmol/L (21.0-32.0); Calcium 9.0 mg/dL (8.5-10.1); Chloride 99 mmol/L (98-107); Estimated GFR 115.59 (mL/min/1.73m2); Glucose 116 mg/dL (74-106); Potassium 3.6 mmol/L (3.5-5.1); Sodium 137 mmol/L (136-145); TSH (W/Ref FT4) 0.09 uIU/mL (0.36-3.74); Total Protein 7.7 g/dL (6.4-8.2)
[2025-06-27 08:57] LABS: Hepatitis C Ab w Rflx HCV PCR Negative (Negative)
[2025-06-27 09:21] LABS: HIV-1/2 Ag & Ab Screen Negative (Negative)
[2025-06-27 10:02] LABS: Rubella IgG Ab (UVM) Positive (See Note)
[2025-06-28 12:37] LABS: Syphilis IgG w/Reflex Nonreactive (Nonreactive)
== END 2025-06-24 02:25 | disposition home or self-care (01) ==
LOC: LBO 02:24
PROVIDERS: PCP Nurse Practitioner Family; Visit Provider Advanced Practice Midwife
DX: Z34.91 Encounter for supervision of normal pregnancy, unspecified, first trimester (principal); Z83.49 Family history of other endocrine, nutritional and metabolic diseases
CPT/HCPCS: 36415; 80053; 86787; 86803; 86850; 86900; 86901; 87340; 87389; 83036; 84439; 84443; 85025; 86762; 86780

== ENCOUNTER 2025-06-24 11:56 | Outpatient (REF) | payer MEDICAID, SELFPAY ==
[2025-06-27 12:21] LABS: Chlamydia Result Negative (Negative); GC Result Negative (Negative)
== END 2025-06-24 11:57 | disposition home or self-care (01) ==
LOC: LBN 11:56
PROVIDERS: PCP Nurse Practitioner Family; Visit Provider Advanced Practice Midwife
DX: Z34.91 Encounter for supervision of normal pregnancy, unspecified, first trimester (principal)
CPT/HCPCS: 87491; 87591; 87086; 87480; 87510; 87660

== ENCOUNTER 2025-07-11 10:24 | Outpatient (REF) | payer MEDICAID, SELFPAY | END 2025-07-11 10:25 | disposition home or self-care (01) | LOC: LBN 10:24 | PROVIDERS: PCP Nurse Practitioner Family; Visit Provider Advanced Practice Midwife | DX: N89.8 Other specified noninflammatory disorders of vagina (principal); Z34.91 Encounter for supervision of normal pregnancy, unspecified, first trimester | CPT/HCPCS: 87480; 87510; 87660 ==

== ENCOUNTER 2025-07-29 09:11 | Outpatient (CLI) | payer MEDICAID, SELFPAY ==
[2025-07-29 13:06] LABS: TSH (W/Ref FT4) 0.33 uIU/mL (0.36-3.74)
== END 2025-07-29 09:12 | disposition home or self-care (01) ==
LOC: LBO 09:11
PROVIDERS: PCP Nurse Practitioner Family; Visit Provider Advanced Practice Midwife
DX: R79.89 Other specified abnormal findings of blood chemistry (principal); Z34.92 Encounter for supervision of normal pregnancy, unspecified, second trimester; Z3A.15 15 weeks gestation of pregnancy
CPT/HCPCS: 36415; 84439; 84443

== ENCOUNTER 2025-08-09 03:30 | Outpatient (CLI) | payer MEDICAID, SELFPAY ==
--- NOTE | 2025-08-09 05:30 | DI.US_ITS ---
Exam(s) US OB CERVICAL LENGTH EXAM: US OB CERVICAL LENGTH CLINICAL HISTORY: 16 week cervical length,H/O DELIVERY,Z87.51. COMPARISON: US US OB 2-3 TRIMESTER from 12/22/2023 TECHNIQUE: Transabdominal Transvaginal first trimester obstetrical ultrasound performed. FINDINGS: The cervical length is 5.23 cm. The cervix has a normal appearance sonographically. There is a grade 0 posterior placenta. The placental tip is 3.5 cm from the internal os. heart rate is 145 beats per minute. presentation varied during the examination. IMPRESSION: The cervical length is 5.23 cm. DATA REPOSITORY:
== END 2025-08-09 03:50 ==
LOC: DI 03:30
PROVIDERS: PCP Nurse Practitioner Family; Visit Provider Advanced Practice Midwife
DX: Z87.51 Personal history of pre-term labor (principal); Z34.82 Encounter for supervision of other normal pregnancy, second trimester
CPT/HCPCS: 76815

== ENCOUNTER 2025-08-23 02:20 | Outpatient (CLI) | payer MEDICAID, SELFPAY ==
--- NOTE | 2025-08-23 15:00 | DI.US_ITS ---
Exam(s) US OB CERVICAL LENGTH EXAM: US OB CERVICAL LENGTH CLINICAL HISTORY: 18 week cervical length,H/O DELIVERY,Z87.51. COMPARISON: US US OB CERVICAL LENGTH from 08/09/2025 TECHNIQUE: Transabdominal Transvaginal first trimester obstetrical ultrasound performed. FINDINGS: Sonographic images demonstrate a single intrauterine gestation in variable position. Estimated date of delivery based upon LMP: 16 January 2026 heart rate not obtained The placenta is posterior. The cervical length is 5.2 cm. IMPRESSION: Normal cervical length 5.2 cm. DATA REPOSITORY:
== END 2025-08-23 02:40 ==
LOC: DI 02:20
PROVIDERS: PCP Nurse Practitioner Family; Visit Provider Advanced Practice Midwife
DX: O09.212 Supervision of pregnancy with history of pre-term labor, second trimester (principal); Z3A.18 18 weeks gestation of pregnancy
CPT/HCPCS: 76815

== ENCOUNTER 2025-10-19 02:13 | Outpatient (CLI) | payer MEDICAID, SELFPAY ==
[2025-10-19 13:29] LABS: HCT 33.9 % (36.0-46.0); HGB 11.2 g/dL (11.2-15.7); MCH 29.6 pg (27.0-33.0); MCHC 33.0 % (32.0-36.0); MCV 89 fL (80-95); MPV 10.8 fL (8.0-11.0); Platelet Count 166 10^3/uL (130-400); RBC 3.79 10^6/uL (3.93-5.22); RDW 12.5 % (11.7-14.6); RDW-SD 40.6 fL; WBC 10.70 10^3/uL (4.4-10.8)
[2025-10-19 13:49] LABS: Glucose,1 Hr (Glucola) 131 mg/dL (80-140)
[2025-10-19 14:30] LABS: TSH (W/Ref FT4) 0.27 uIU/mL (0.55-4.78)
== END 2025-10-19 02:14 | disposition home or self-care (01) ==
LOC: LBO 02:13
PROVIDERS: Advanced Practice Midwife; PCP Nurse Practitioner Family; Visit Provider Registered Nurse
DX: Z34.92 Encounter for supervision of normal pregnancy, unspecified, second trimester (principal); R79.89 Other specified abnormal findings of blood chemistry
CPT/HCPCS: 36415; 82950; 85027; 84439; 84443

== ENCOUNTER 2025-11-03 16:10 | Outpatient (CLI) | payer MEDICAID, SELFPAY ==
[2025-11-04 17:39] LABS: T3,Free 3.0 pg/mL (2.8-5.3)
== END 2025-11-03 16:11 | disposition home or self-care (01) ==
LOC: LBO 16:10
PROVIDERS: PCP Nurse Practitioner Family; Visit Provider Advanced Practice Midwife
DX: R79.89 Other specified abnormal findings of blood chemistry (principal); Z34.93 Encounter for supervision of normal pregnancy, unspecified, third trimester
CPT/HCPCS: 36415; 86376; 84481

== ENCOUNTER 2025-11-13 19:20 | Outpatient (CLI) | payer MEDICAID, SELFPAY ==
[2025-11-13 19:40] VITALS: BP 118/74; PULSE 84; TEMP 209.8; TEMP 98.8
[2025-11-13 21:24] LABS: Glucose Negative (Negative)
[2025-11-13 21:30] LABS: RBC 20-50 HPF (0-2); WBC 0-2 HPF (0-5)
[2025-11-13 21:31] LABS: C & S Indicated? No
[2025-11-13 21:49] LABS: Fetal Fibronectin Negative (Negative)
--- NOTE | 2025-11-14 13:44 | PDOC.NST_ITS ---
Date of service: 11/13/25 Time of Service: 22:00 NST Evaluation Reason for NST Reasons for Nonstress Test: OTHER, SEE COMMENT Reason for NST Other: ? elliot and spotting Gestational Age Gestational Age in Weeks and Days: 31 Weeks and 0Days Test and Monitor Explained Test/Monitor Explained: Test Explained, Monitor Explained and Patient Verbalized Understanding Vital Signs Blood Pressure: 118/74 Pulse: 84 Temperature: 209.8 F NST Information Time on Monitor: 20:00 Date off Monitor: 11/13/25 Time off Monitor: 21:10 NST Interventions: PO Hydration NST Evaluation Patient States Movement: Present FHR Baseline: 130 Variability: Moderate 6-25 bpm Accelerations: 15x15 Decelerations: None NST Results: Reactive Note Ultrasound Done: N/A. NST Note Note: Berenice reported light spotting and low back ache today. She did hae intercourse recently. Speculum exam performed. FFN and vaginal path screen taken. reactive NST. No evidence of regular contraction. cervix soft and closed and long. Vertex ballotable. Signs of labor reviewed. rest for a few days and pelvic rest recommended, Follow up at client relations representative [facility] midwifery NST Reviewed and Verified by: Arti Ricks
[2025-11-14 13:45] VITALS: BP 118/74; PULSE 84; TEMP 209.8; TEMP 98.8
== END 2025-11-13 21:10 ==
LOC: BCD 19:21 → OBS 19:52
PROVIDERS: PCP Nurse Practitioner Family; Visit Provider Advanced Practice Midwife
DX: Z87.51 Personal history of pre-term labor; Z3A.31 31 weeks gestation of pregnancy; N93.0 Postcoital and contact bleeding; O99.891 Other specified diseases and conditions complicating pregnancy; M54.50 Low back pain, unspecified
CPT/HCPCS: 59025; 81003; 81015; 82731; 87081; 87480; 87510; 87660

== ENCOUNTER → 2025-11-15 10:56 | Outpatient (CLI) | payer MEDICAID, SELFPAY ==
--- NOTE | 2025-11-15 10:30 | DI.US_ITS ---
Exam(s) US OB ESSENCE WEIGHT EXAM: US OB ESSENCE WEIGHT CLINICAL HISTORY: bleeding at 31 weeks, HX DELIVERY, O46.93, Z87.51, Z34.90. TECHNIQUE: Transabdominal obstetrical ultrasound performed. COMPARISON: US US OB CERVICAL LENGTH from 08/23/2025 FINDINGS: Number of fetuses: 1 position: CEPHALIC Placental location: There is a grade 1-2 posterior placenta. The placental tip is 12 cm from the internal os. No evidence of previa. BIOMETRIC DATA: BPD: 7.98cm, 32weeks HC: 29cm, 32weeks AC: 28.14cm, 32weeks 1day FL: 6.09cm, 31weeks 5days EFW: 1,877.31g, 4lb 2.88oz, 66.8% Composite Age: 32weeks YAN: 01/10/2026 Heart Rate: 130bpm Amniotic fluid index: 22.5cm. The largest pocket is 7.8 cm. IMPRESSION: 1. Single live intrauterine gestation as above. 2. Estimated weight is 1877gms. This is the 67th percentile. 3. Amniotic fluid index is 22.5 cm. The largest pocket is 7.8 cm. DATA REPOSITORY:
== END ==
LOC: DI 10:56
PROVIDERS: PCP Nurse Practitioner Family; Visit Provider Advanced Practice Midwife
DX: O46.93 Antepartum hemorrhage, unspecified, third trimester (principal); Z87.51 Personal history of pre-term labor; Z34.93 Encounter for supervision of normal pregnancy, unspecified, third trimester
CPT/HCPCS: 76816

== ENCOUNTER 2025-11-21 09:26 | Emergency (ER) | payer MEDICAID, SELFPAY ==
[2025-11-21 09:29] VITALS: BP 135/74; PULSE 91; RESP 18; TEMP 36.8; O2SAT 99
[2025-11-21 09:33] VITALS: BP 135/74; PULSE 91; RESP 18; TEMP 36.8; O2SAT 99
--- NOTE | 2025-11-21 09:39 | W.ED.GENAD ---
Discharge Plan Disposition Patient Disposition: Home Condition: Stable Discharge Details Clinical Impression: Streptococcal sore throat Primary Care Provider: CHRISTIAN URBINA ED Provider: Rose Mary Taylor Home Meds and New Rx's Prescriptions: Continued PNV no.170-iron fum-folic acid 27 mg iron- 1 mg tablet 1 tab PO DAILY Qty: 90 3RF escitalopram oxalate 10 mg tablet See Rx Instructions PO DAILY Rx Instructions: 15 mg/1and 1/2 tabs orally daily; aspirin 81 mg tablet 162 mg PO DAILY amoxicillin 250 mg capsule 500 mg PO BID Patient Comments: 11/18/25- pt taking 250 BID for 10 days starting today. Discharge Instructions Instructions: Strep Throat ED Additional Instructions: Please continue the antibiotics you were previously prescribed. Please take this with yogurt or a probiotic daily. Gargle with warm salt water up to 3 times daily. You may use [id number] throat lozenges and throat spray as directed. Increase oral fluids. Follow up with primary care provider in 3-5 days. Return to ED sooner if any worsening trouble swallowing, drooling change in your voice, fever over 100.8 or greater after taking Tylenol or concerns. I did offer to test you for COVID flu RSV which you have declined at this time. Stand Alone Forms: Portal Information Referrals: CHRISTIAN URBINA, NUDE MODEL [Primary Care Provider, Medicine] - 5 days Clinical Impression: Streptococcal sore throat Discharge Data Discharge Date/Time-TO BE ENTERED AT DEPARTURE: 11/21/25 09:51 HPI General Mode of arrival: ambulatory. Date/Time Provider Initiated Documentation: 11/21/25 09:27. Limitations to Documentation: no limitations. Information obtained by: patient, RN notes reviewed and old records reviewed. HPI Narrative: 35 year old female presents to the ER with a cc of sore throat after being diagnosed with strep 3 days ago urgent care. She was placed on amoxicillin 500 mg twice a day she reports she has taken as directed. She reports not feeling any better. Has been gargling with warm salt water. Does have erythemic posterior oropharynx, no exudate. Is speaking in full sentences, clear voice lungs are clear to auscultation bilaterally breathing is eupneic. Related Data Home Medications ?Medication ?Instructions ?Recorded ?Confirmed vitamins no.170-iron 1 tab PO DAILY #90 tabs 09/10/23 11/21/25 fumarate 27 mg-folic acid 1 mg tablet aspirin 81 mg tablet 162 mg PO DAILY 06/24/25 11/21/25 escitalopram oxalate 10 mg tablet See Rx Instructions PO DAILY 06/24/25 11/21/25 amoxicillin 250 mg capsule 500 mg PO BID 11/18/25 11/21/25 Previous Rx's ?Medication ?Instructions ?Recorded vitamins no.170-iron 1 tab PO DAILY #90 tabs 09/10/23 fumarate 27 mg-folic acid 1 mg tablet Allergies Allergy/AdvReac Type Severity Reaction Status Date / Time No Known Drug Allergies Allergy Other (See Verified 11/21/25 09:32 Comment) General Stated Complaint: Sorethroat LAITH: 4 Exam Narrative Exam Narrative: Constitutional: Alert and oriented x3. Appears stated age. Normal body habitus. Head: Normocephalic, no trauma. Eyes: Pupils PERRL, Red reflex noted, EOM's intact. Eyelids symmetrical without lesions, discharge, or swelling. ENT: Bilateral TM's WNL, External ear normal to inspection, no mastoid TTP, swelling, or erythema, Nasal turbinates WNL, no nasal discharge. Normal dentition, Posterior pharynx erythemic, no exudate. Uvula midline. Chest: RRR, Normal S1, S2, distal pulses intact. Resp: Lungs clear to auscultation bilaterally, no wheezes, rales, or rhonchi. Course Vital Signs Vital signs: Vital Signs Temperature 36.8 C 11/21/25 09:29 Pulse 91 H 11/21/25 09:29 Respiratory Rate 18 11/21/25 09:29 Blood Pressure 135/74 11/21/25 09:29 Pulse Oximetry 99 11/21/25 09:29 Temperature 36.8 C 11/21/25 09:33 Pulse 91 H 11/21/25 09:33 Respiratory Rate 18 11/21/25 09:33 Blood Pressure 135/74 11/21/25 09:33 Pulse Oximetry 99 11/21/25 09:33 Medical Decision Making 35 year old female presents to the ER with a cc of sore throat after being diagnosed with strep 3 days ago urgent care. She was placed on amoxicillin 500 mg twice a day she reports she has taken as directed. She reports not feeling any better. Has been gargling with warm salt water. Does have erythemic posterior oropharynx, no exudate. Is speaking in full sentences, clear voice lungs are clear to auscultation bilaterally breathing is eupneic. I did discuss continued home care and to give the antibiotics at least 2 more days, increase oral fluids. I did offer her a COVID flu and RSV swab to rule that out which she declined. This text was generated using [employer] dictation system, please disregard any oddities of phrase or misspellings. PFSH All Active Problems (Updated 11/21/25 @ 09:43 by Rose Mary Taylor NP) Streptococcal sore throat (Acute) Third trimester bleeding, antepartum (Acute) Subclinical hyperthyroidism during (Acute) elevated TG and TPO Low TSH level (Acute) BMI 34.0-34.9,adult (Acute) History of delivery (Acute) Advanced maternal age (AMA) in (Acute) (Acute) Stage 1 hypertension (Acute) Anxiety disorder (Acute 03/10/13) Medical History (Updated 11/21/25 @ 09:43 by Rose Mary Taylor NP) Dysuria during Vaginal pruritus Torticollis Tinea corporis Benign lipomatous tumor Cough Acute pharyngitis Verruca vulgaris OCD (obsessive compulsive disorder) Family history of endocrine disorder Chronic rhinitis Family History (Updated 09/19/25 @ 10:51 by Arti Ricks CNM) Mother Heart disease [place] Sister Thyroid disorder Hyperthyroidism Social History Smoking/Tobacco Use Status: Never Smoking risk assessment performed?: Yes Alcohol Intake: current Alcohol Intake frequency: holidays/special occasions only Alcohol type: beer and wine Drug use: Never Substance use type: does not use Current gender identity: female Do you feel safe at home: Yes Do you feel safe in your relationship?: Yes Female Reproductive History Menstrual Age of Menarche: 12 Duration of menses: 3-5 days control method: none History History 3 Para 2 Hx # Term Pregnancies 1 Multiple births 0 Hx # Pregnancies 1 Ectopic pregnancies 0 AB induced 0 Hx Number of Living Children 2 AB spontaneous 0 Past Pregnancies Del. Date GA/Weeks # Preg Succ Route Wgt Sex Labor Lgth Anesthesia Location Prov Complic 06/13/14 37 No Yes vaginal 2608.156 g Male 17 regional [facility] ([place]) 03/26/24 33 No Yes vaginal 2837.787 g Male regional [facility] other Delivery Date: 06/13/14 Last Updated by: Sandra Vazquez PROM w/spont labor, had intrathecal, nml [place] Delivery Date: 03/26/24 Last Updated by: Arti Ricks CNM Membranes ruptured with cervical exam at [facility]. labor and delivery; bilateral hung-urethral lacerations
== END 2025-11-21 09:51 | disposition home or self-care (01) ==
PROVIDERS: Emergency Provider Registered Nurse Emergency; PCP Nurse Practitioner Family
DX: J02.0 Streptococcal pharyngitis (principal)
CPT/HCPCS: 99282 ×2; 87637